=== PATIENT | male | born 1980 | race Caucasian/White ===

== ENCOUNTER 2020-05-18 | Emergency (ER) | payer OTHER ==
[2020-05-18 10:17] LABS: URINE BILIRUBIN - DIPSTICK NEGATIVE (NEGATIVE); URINE BLOOD DIPSTICK NEGATIVE (NEGATIVE); URINE COLOR YELLOW; URINE GLUCOSE - DIPSTICK NEGATIVE (NEGATIVE); URINE KETONE NEGATIVE (NEGATIVE); URINE LEUK ESTERASE NEGATIVE (NEGATIVE); URINE PROTEIN - DIPSTICK NEGATIVE (NEG-TRACE); URINE SPECIFIC GRAVITY 1.015; URINE UROBILINOGEN - DIPSTICK 0.2 E.U./dL (0.2)
[2020-05-18 10:29] LABS: URINE NITRITE - DIPSTICK NEGATIVE (Negative)
[2020-05-18 10:38] LABS: HEMATOCRIT 37.8 % (39.0-50.0); HEMOGLOBIN 11.7 g/dl (14.0-18.0); IMMATURE GRANULOCYTES 0.3 % (0.0-5.0); MEAN CELL VOLUME 64.8 fL CALC (80.0-100.0); MEAN CORPUSCULAR HGB 20.1 pG CALC (26.0-32.0); NEUT# 6.38 thou/uL (1.82-7.42); RED BLOOD COUNT 5.83 mill/uL (4.70-6.10); RED CELL DISTRI WIDTH 17.7 % (11.5-15.5)
[2020-05-18 10:51] LABS: ALBUMIN 4.9 g/dL (3.2-5.0); ALKALINE PHOSPHATASE 71 u/l (38-126); AMYLASE 53 u/l (30-110); ANION GAP 12 (6-22 (CALC)); BILIRUBIN, TOTAL 1.2 mg/dL (0.0-1.4); BUN 14 mg/dL (9-20); BUN/CREATININE RATIO 14 (12-20 (CALC)); CARBON DIOXIDE 26 mmol/l (22-30); CHLORIDE 100 mmol/l (95-108); GFR > 60 ML/MIN (>=60 (CALC)); GFR FOR AFR.AMER. > 60 ML/MIN (>=60 (CALC)); LIPASE 73 u/l (23-300); POTASSIUM 3.9 mmol/l (3.5-5.1); SGOT/AST 54 u/l (17-59); SODIUM 134 mmol/l (137-146)
[2020-05-18] MEDS ORDERED: NAPROXEN500 MG PO (12:15)
== END 2020-05-18 14:17 | DRG 392 ==
PROVIDERS: Emergency Medicine
DX: R10.32 Left lower quadrant pain (principal); M79.10 Myalgia, unspecified site; K21.9 Gastro-esophageal reflux disease without esophagitis; Z90.79 Acquired absence of other genital organ(s)
CPT/HCPCS: Q9967